=== PATIENT | female | born 1950 | race Caucasian/White ===

== ENCOUNTER 2016-09-06 10:05 | Emergency (ER) | payer MEDICARE, MEDICAID ==
[2016-09-06 10:17] VITALS: BP 139/64
[2016-09-06] MEDS ORDERED: Aspirin Low Dose CHEW TAB* 81 MG ONE (10:21)
[2016-09-06] MEDS ORDERED: Aspirin TAB* 325 MG PO ONE (10:22)
--- NOTE | 2016-09-06 10:28 | UC ---
Cardiac HPI - HPI Summary HPI Summary: JAMES sanon in pattern over the last month or so. Occassional cp with one large episode this morning at rest. NO recent resp or gi illness. no prior cardiac disease except for prior "irregular heart beat." no prior cardiology care. - History of Current Complaint Chief Complaint: UCChestPain Stated Complaint: CHEST PAINS,HEADACHE Time Seen by Provider: 09/06/16 10:12 Hx Obtained From: Patient Onset/Duration: Gradual Onset, Lasting Hours, Resolved Initial Severity: Severe Current Severity: None Chest Pain Location: Left Anterior Character: Skipped Beats Aggravating: Exertion Alleviating: Rest Associated Signs & Symptoms: Positive: Chest Pain, SOB - Allergy/Home Medications Allergies/Adverse Reactions: Allergies Allergy/AdvReac Type Severity Reaction Status Date / Time Aspirin Allergy See Comment Verified 09/06/16 10:17 Home Medications: Home Medications Divalproex Sodium [Depakote] 500 mg PO BID 09/06/16 [History Confirmed 09/06/16] Furosemide TAB* [Lasix TAB*] 40 mg PO DAILY 09/06/16 [History Confirmed 09/06/16 ] PMH/Surg Hx/FS Hx/Imm Hx Endocrine History Of: Denies: Diabetes Cardiovascular History Of: Denies: Myocardial Infarction, Congestive Heart Failure Respiratory History Of: Reports: Asthma Cancer History Of: Denies: Breast Cancer - Surgical History Surgical History: None - Family History Known Family History: Negative: Blood Disorder - Social History Alcohol Use: None Substance Use Type: None Smoking Status (MU): Never Smoked Tobacco Review of Systems All Other Systems Reviewed And Are Negative: Yes Physical Exam Triage Information Reviewed: Yes Appearance: Well-Appearing, No Pain Distress, Well-Nourished Vital Signs: Initial Vital Signs Temp 98.7 F 09/06/16 10:13 Pulse 83 09/06/16 10:13 Resp 18 09/06/16 10:13 BP 139/64 09/06/16 10:13 Pulse Ox 100 09/06/16 10:13 Vital Signs Reviewed: Yes ENT Exam: Normal ENT: Positive: Normal ENT inspection. Negative: Pharynx normal, Pharyngeal erythema, Nasal congestion, Nasal drainage Neck exam: Normal Neck: Positive: Supple, Nontender, No Lymphadenopathy. Negative: Nuchal Rigidity, Tenderness @, Enlarged Nodes @ Respiratory Exam: Normal Respiratory: Positive: Lungs clear, Normal breath sounds, No respiratory distress, No accessory muscle use. Negative: Respiratory distress, Decreased breath sounds, Accessory muscle use, Crackles, Rhonchi, Stridor, Wheezing Cardiovascular Exam: Normal Cardiovascular: Negative: RRR, No Murmur, Pulses Normal, Brisk Capillary Refill Abdominal Exam: Normal Abdomen Description: Positive: Nontender, No Organomegaly, Soft Musculoskeletal: Positive: Strength Intact, ROM Intact, No Edema. Negative: Strength Limited @, ROM Limited @, Edema @ Neurological Exam: Normal Neurological: Positive: Alert, Muscle Tone Normal, Fatigued. Negative: Lethargic, Unresponsive Psychological Exam: Normal Psychological: Positive: Normal Response To Family, Age Appropriate Behavior Skin Exam: Normal Skin: Negative: rashes - Differential Diagnoses - Chest Pain Differential Diagnosis/HQI/PQRI: Acute TN, ACS, Angina, Aortic Aneurysm, CHF, Chest Wall, GI Disease, Lower Respiratory Infection, Pulmonary Edema, Pulmonary Embolism - Differential Diagnoses - Hypertension Differential Diagnosis/HQI PQRI: AAA, Angina, Myocardial Infarction - Differential Diagnoses - Palpitations Differential Diagnosis/HQI/PQRI: Cardiomyopathy - Clinical Impression Provider Diagnoses: chest pain. Dyspnea with exertion Discharge - Discharge Plan Condition: Guarded Disposition: [facility] Patient Education Materials: Chest Pain (ED), Dyspnea (ED) Referrals: Sarah Jones NP [Primary Care Provider] -
[2016-09-06] MEDS ORDERED: Aspirin Low Dose CHEW TAB* 81 MG PO ONE (10:31)
--- NOTE | 2016-09-06 10:31 | UC ---
Progress - Progress Note Progress Note: we had a long discussion about the possibilities of the etiology of her pain and becerril including heart related disease. she was also told that [facility] may not be able to difinitively address any possible CAD. she would still like to go to [place] for care as it is closer to home. she was also advised to go by ambulance but refused stating she is asymptomatic now. I told her that there were dangers that may occur in route such as , heart attack, sudden respiratory distress. she still refused. 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
== END 2016-09-06 10:37 | disposition left against medical advice (07) ==
LOC: UCCORT 10:05
DX: R07.89 Other chest pain (principal); R06.09 Other forms of dyspnea; Z88.6 Allergy status to analgesic agent
CPT/HCPCS: 93005; 99213; A9270-GY; G0463